=== PATIENT | male | born 1980 | race Caucasian/White ===

== ENCOUNTER 2022-07-29 14:59 | Emergency (ER) | payer BC ==
[~2022-07-29] VITALS: Ht 172.7 cm; Wt 72.6 kg
[2022-07-29 15:05] VITALS: BP 156/94
[2022-07-29] MEDS ORDERED: BUPR1FIL SL (15:14)
== END 2022-07-29 15:24 | disposition home or self-care (01) ==
LOC: ER 15:02
DX: F11.23 Opioid dependence with withdrawal (principal); Z76.0 Encounter for issue of repeat prescription; Z79.899 Other long term (current) drug therapy